=== PATIENT | female | born 1990 | race Caucasian/White ===

== ENCOUNTER 2017-04-16 17:41 | Emergency (ER) | payer BC, OTHER ==
[~2017-04-16] VITALS: Ht 149.9 cm; Wt 62.5 kg
[~2017-04-16 17:41] MED LIST: CALC300T34; PNV1TABL12
[2017-04-16 17:45] VITALS: Ht 149.9 cm; Wt 62.5 kg
--- NOTE | 2017-04-16 19:23 | ERA ---
ER Documentation Chief Complaint Date/Time DATE: 04/16/17 TIME: 19:19 Chief Complaint RT FIRST FINGER PAIN S/P CRUSHED BY CAR DOOR HPI This is an otherwise healthy 27-year-old female who presents with a chief complaint of finger pain 1 hour status post hand injury. Patient was playing with son when son closed the door on patient's right second digit. Patient denies any laceration or bleeding. Patient gives the pain as a current 8-9 out of 10. Patient denies any medical conditions. 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 ROS All systems reviewed and are negative except as per history of present illness. Medications Home Meds Active Scripts Ibuprofen* (Motrin*) 400 Mg Tab, 400 MG PO Q6, #30 TAB Prov:JAMIL LOZANO PA-C 04/16/17 Hydrocodone/Acetaminophen (Vinton 5-325 Tablet) 1 Each Tablet, 1 EACH PO Q8 for 3 Days, TAB Prov:JAMIL LOZANO PA-C 04/16/17 Reported Medications Pnv Cmb#21/Iron/Folic Acid ( Complete Caplet) 1 Tab Tablet 11/09/09 Calcium Carbonate (Tums EX) 1 Tab.chew Tab.chew 11/09/09 Allergies Allergies: Coded Allergies: No Known Allergy (Unverified , 04/16/17) PMhx/Soc History of Surgery: Yes (APPY 2005) Hx Neurological Disorder: No Hx Respiratory Disorders: Yes (ASTHMA) Hx Cardiac Disorders: No Hx Miscellaneous Medical Probl: No Hx Alcohol Use: No Hx Substance Use: No Hx Tobacco Use: No Physical Exam Vitals Vital Signs Date Time Temp Pulse Resp B/P Pulse Ox O2 Delivery O2 Flow Rate FiO2 04/16/17 17:45 98.0 58 16 114/70 100 Physical Exam Const: Well-appearing well-developed 27-year-old female in no acute distress Head: Atraumatic Eyes: Normal Conjunctiva ENT: Normal External Ears, Nose and Mouth. Neck: Full range of motion..~ No meningismus. Resp: Clear to auscultation bilaterally Cardio: Regular rate and rhythm, no murmurs Abd: Soft, non tender, non distended. Normal bowel sounds Skin: No petechiae or rashes Back: No midline or flank tenderness Ext: Swollen tender second digit of the right hand. Tenderness to palpation over the affected area. No tenderness past the metacarpophalangeal joint of the second right hand digit. No bruising or color changes noted on the skin. Neur: Awake and alert Psych: Normal Mood and Affect Results 24 hrs Current Medications Medications (Trade) Dose Ordered Sig/Solis Route PRN Reason Start Time Stop Time Status Last Admin Dose Admin Acetaminophen/ Hydrocodone Bitart (Vinton (5/325)) 1 tab ONCE ONCE PO 04/16/17 19:30 04/16/17 19:31 DC 04/16/17 19:26 Procedures/MDM Patient is presenting with a chief complaint of right handed second digit pain as described in history and physical examination. Patient was given a Vinton 5/ 325 mg in the ED. Patient had an x-ray taken due to the history of trauma. The x-ray was read by the radiologist and given the following impression: IMPRESSION: Unremarkable right hand. At this time I very low suspicion for bony pathology however I am unable to rule out tendon or ligamentous pathologies. Have advised to follow-up with PCP in the next 1-3 days. Patient will be given Vinton and ibuprofen for pain and swelling due to use of right hand frequently at work. Patient's vitals are stable and current condition is appropriate for discharge. Departure Diagnosis: Primary Impression: Finger injury Qualified Code: S69.91XA - Finger injury, right, initial encounter Additional Impression: Pain of finger Qualified Code: M79.644 - Pain of finger of right hand Condition: Stable Additional Instructions: Follow up with your PCP within the next 1-3 days for a more thorough evaluation and a possible referral to a specialist. Return the the emergency department immediately if symptoms worsen or change. If you have any questions regarding medications, ask your pharmacist or us before you leave. If any adverse reactions occur while taking your medications, discontinue the treatment and return to the emergency department immediately. Take your medications as directed, and complete the entire course of treatment. JAMIL LOZANO PA-C Apr 16, 2017 19:23
[2017-04-16] MEDS ORDERED: HYDROCODONE/APAP (5/325) TAB PO ONE (19:30)
--- NOTE | 2017-04-16 20:09 | RADRPT ---
PROCEDURE: XR Right Hand CLINICAL INDICATION: Trauma, door versus hand TECHNIQUE: AP, oblique, and lateral radiographs were submitted. COMPARISON: None FINDINGS: Osseous structures: appear well mineralized and intact with no fracture or destructive process iden tified. Joint spaces: are well maintained, with no significant spurring, erosion or joint effusion evident. Soft tissues: appear unremarkable. IMPRESSION: Unremarkable right hand. Physician Lorenzo Date Time Electronically viewed and signed by Leanna Polanco Physician on 04/16/2017 20:09 /
[2017-04-16] MEDS ORDERED: HYDR-906 PO (20:11)
[2017-04-16] MEDS ORDERED: IBUP400T22 PO (20:12)
== END 2017-04-16 20:18 | disposition home or self-care (01) ==
LOC: FTE 17:41
DX: S69.91XA Unspecified injury of right wrist, hand and finger(s), initial encounter (principal); J45.909 Unspecified asthma, uncomplicated; W23.0XXA Caught, crushed, jammed, or pinched between moving objects, initial encounter; Y92.9 Unspecified place or not applicable
CPT/HCPCS: 73140

== ENCOUNTER 2018-03-20 11:57 | Emergency (ER) | END 2018-03-20 14:15 | disposition home or self-care (01) ==

== ENCOUNTER 2018-08-11 01:05 | Emergency (ER) | END 2018-08-11 02:59 | disposition home or self-care (01) ==